=== PATIENT | male | born 1975 | race African-American/Black ===

== ENCOUNTER 2017-06-21 14:33 | Emergency (ER) | payer BC ==
[~2017-06-21] VITALS: Ht 185.4 cm; Wt 102.1 kg
--- NOTE | ~2017-06-21 | EKG ---
[address] [address] ELECTROCARDIOGRAM REPORT Name: SHERLY TOUSSAINT Room #: [facility]#: [id number] Admission: 06/21/17 Attend Phys: Discharge: 06/21/17 Date of : 75 Report #: [id number] THIS REPORT FOR: //name// [facility] ED Test Date: 2017-06-21 Test Time: 14:50:05 Pat Name: SHERLY TOUSSAINT Department: Room: Gender: M Aromatherapist: Erlin BENSON : 1975 Requested By: Jermaine Moore Order Number: [id number] MD: Reji Peacock Measurements Intervals [place] Rate: 88 P: 31 NM: 163 QRS: 37 QRSD: 96 T: -30 QT: 374 QTc: 453 Interpretive Statements Sinus rhythm Probable left atrial enlargement Borderline T abnormalities, inferior leads No previous ECG available for comparison Electronically Signed On 06-22-2017 8:06:10 CDT by Reji Peacock [email or web address] <ELECTRONICALLY SIGNED> By: Reji Peacock MD 06/22/17 0806 1450 1450 Reji Peacock MD /MG
[~2017-06-21 14:33] MED LIST: BACTRIM DS TAB1 EACH PO; HUMALOG100 UNIT/1; LANTUS SC; LISINOPRIL PO; NORCO 5-325 TA1 EACH PO; OSELB75 PO; ROBAFEN AC SYR120 ML PO
[2017-06-21] MEDS ORDERED: LANTUS100 UNIT/M SUBQ ×2 (15:01)
[2017-06-21] MEDS ORDERED: LISINOPRIL-HCT1 EAC1 PO (15:02)
[2017-06-21 15:03] LABS: HEMATOCRIT 43.6 % (42.0-52.0); HEMOGLOBIN 14.8 gm/dL (14.0-18.0); MCH 29.1 pg (26.0-34.0); MCV 85.6 fL (80.0-100.0); RBC 5.09 mil/uL (4.50-6.00); RDW 13.9 % (10.5-14.5); WBC 7.9 thou/uL (4.0-11.0)
[2017-06-21] MEDS ORDERED: HUMALOG100 UNIT/1 SUBQ (15:03)
[2017-06-21] MEDS ORDERED: CRESTOR10 MG PO (15:03)
[2017-06-21 15:08] LABS: MANUAL DIFF YES
[2017-06-21 15:10] LABS: CALCIUM 9.3 mg/dL (8.5-10.1); CREATININE 1.3 mg/dL (0.7-1.3); POTASSIUM 4.2 mmol/L (3.5-5.1)
[2017-06-21 15:36] LABS: ABSOLUTE NEUTROPHILS 4.6 thou/uL (1.4-8.2); ATYPICAL LYMPHS 2 %; PLATELET COUNT 138 thou/uL (150-400); PLATELET ESTIMATE NORMAL; TOTAL CELL COUNT 100
[2017-06-21 15:37] LABS: LARGE PLATELETS RARE
[2017-06-21 17:21] VITALS: BP 141/93
== END 2017-06-21 17:22 | disposition home or self-care (01) ==
LOC: ER 14:33
PROVIDERS: Emergency Medicine
DX: E10.649 Type 1 diabetes mellitus with hypoglycemia without coma (principal)